=== PATIENT | male | born 1935 | race Caucasian/White ===

== ENCOUNTER 2016-07-07 09:20 | Emergency (ER) | payer OTHER ==
[~2016-07-07] VITALS: Ht 182.9 cm; Wt 83.9 kg
[~2016-07-07 09:20] MED LIST: ACETAMINOPHEN325 M1 PO; ALOE VERA PO; ASPIRIN EC325 M1 PO; ASPIRIN EC81 M1 PO; ASPIRIN325; ASPIRIN325 PO; ATENOLOL 25 MG25 M1 PO; ATENOLOL 25MG T25 MG PO; AVASTIN; CALCIUM 1,0001 EACH PO; CO Q-10100 MG PO; COLACE 100 MG100 MG PO; DILTIAZEM ER180 M1; EFFIENT10 MG PO; ENDOCET 5-3251 EACH PO; FISH OIL + VIT1 EACH PO; FISH OIL 1,001000 M1 PO; FISHOIL OR; FLECAINIDE ACET50 M1; FOLBIC RF TABL1 EACH PO; FOLGARD TABLET1 EAC1 PO; GALZIN25 MG PO; GLUCOSAMINE &1 EACH PO; GLUCOSAMINE HC500 MG PO; GLUTAMINE500 MG PO; IMDUR 60 MG TAB60 M1 PO; IRON325 PO; ISOSORBIDE DINI30 MG PO; LIPITOR10 MG PO; LIPITOR20 MG PO; LOW DOSE ASPIRI81 M1 PO; LUCENTIS0.3 MG/0.0 IO; LUCENTIS0.5 MG/0.0 INJ; LUTEIN20 M1 PO; LUTEIN20 MG PO; MOM PO; MULTIVITAMINS1 EAC7 PO; NIACOR500 MG PO; NORCO 5-325 TA1 EACH PO; ORENCIA125 MG/1 M SQ; PACERONE 200 M200 M1 PO; PEPCID AC20 M1 PO; PHISOHEX148 ML TP; PLAVIX 75 MG TA75 MG; PLAVIX 75 MG TA75 MG PO; PRADAXA150 MG PO; PREDNISONE 5 MG5 M1 PO; SENNA PO; TAMBOCOR 50 MG50 MG PO; TENORMIN25 MG PO; TUMS PO; UNICOMPLEX M TA1 TA1 PO; VEGETARIAN GLU750 MG PO; VITAMIN A25000 UNIT PO; VITAMIN D2000 UNIT PO; VITAMINC500 PO; ZEAXANTHIN100 GM PO; [UNRECOGNIZED DRUG - OTHER]
[2016-07-07] MEDS ORDERED: BIOTIN1 MG PO (09:48)
[2016-07-07] MEDS ORDERED: NIACIN 500 MG500 M1 PO (09:49)
[2016-07-07 10:13] LABS: HEMATOCRIT 31.5 % (42.0-52.0); MCH 31.5 pg (26.0-34.0); MCHC 34.8 % (28.0-37.0); MCV 90.5 fL (80.0-100.0); PLATELET COUNT 106 thou/uL (150-400); RBC 3.48 mil/uL (4.50-6.00)
[2016-07-07 10:18] LABS: CALCIUM 8.7 mg/dL (8.5-10.1); POTASSIUM 3.8 mmol/L (3.5-5.1)
[2016-07-07 10:19] LABS: MANUAL DIFF YES
[2016-07-07 10:22] LABS: WBC 1.5 thou/uL (4.0-11.0)
[2016-07-07] MEDS ORDERED: AMOXICILLIN 50500 M1 PO (10:45)
[2016-07-07] MEDS ORDERED: TAMIFLU75 MG PO (10:45)
[2016-07-07 11:06] LABS: ABSOLUTE NEUTROPHILS 0.2 thou/uL (1.4-8.2); TOTAL CELL COUNT 50
[2016-07-07 11:07] LABS: ANISOCYTOSIS 1+
== END 2016-07-07 10:56 | disposition home or self-care (01) ==
LOC: ER 09:20
PROVIDERS: Emergency Medicine
DX: J40 Bronchitis, not specified as acute or chronic (principal); B34.9 Viral infection, unspecified; I10 Essential (primary) hypertension; E78.00 Pure hypercholesterolemia, unspecified; K21.9 Gastro-esophageal reflux disease without esophagitis; Z95.1 Presence of aortocoronary bypass graft; Z98.890 Other specified postprocedural states; Z95.9 Presence of cardiac and vascular implant and graft, unspecified; Z87.891 Personal history of nicotine dependence

== ENCOUNTER → 2018-12-24 | Outpatient (CLI) | payer OTHER ==
[~2018-12-24] MED LIST changes: +AMOXICILLIN 50500 M1 PO; +BIOTIN1 MG PO; +NIACIN 500 MG500 M1 PO; +TAMIFLU75 MG PO
== END ==
LOC: RAD 11:08
DX: R05 Cough (principal); Z95.1 Presence of aortocoronary bypass graft; Z88.0 Allergy status to penicillin; Z88.8 Allergy status to other drugs, medicaments and biological substances

== ENCOUNTER → 2020-09-07 | Outpatient (CLI) | payer OTHER | LOC: SJCVC 16:13 | PROVIDERS: ATTEND Internal Medicine | DX: R94.31 Abnormal electrocardiogram [ECG] [EKG] (principal); R00.0 Tachycardia, unspecified; I45.10 Unspecified right bundle-branch block; I44.0 Atrioventricular block, first degree; I65.23 Occlusion and stenosis of bilateral carotid arteries; E78.5 Hyperlipidemia, unspecified; I51.7 Cardiomegaly; M05.79 Rheumatoid arthritis with rheumatoid factor of multiple sites without organ or systems involvement; G20 Parkinson's disease; K21.9 Gastro-esophageal reflux disease without esophagitis; E78.00 Pure hypercholesterolemia, unspecified; E03.9 Hypothyroidism, unspecified; G47.33 Obstructive sleep apnea (adult) (pediatric); M06.9 Rheumatoid arthritis, unspecified; I45.6 Pre-excitation syndrome; Z95.1 Presence of aortocoronary bypass graft; Z79.899 Other long term (current) drug therapy; Z86.12 Personal history of poliomyelitis; Z87.891 Personal history of nicotine dependence; Z88.5 Allergy status to narcotic agent; Z88.0 Allergy status to penicillin; Z88.8 Allergy status to other drugs, medicaments and biological substances ==

== ENCOUNTER → 2021-05-07 | Outpatient (CLI) | payer OTHER | LOC: SJCVC 14:42 | PROVIDERS: ATTEND Internal Medicine | DX: R94.31 Abnormal electrocardiogram [ECG] [EKG] (principal); I45.10 Unspecified right bundle-branch block; I44.0 Atrioventricular block, first degree; R00.0 Tachycardia, unspecified; I25.10 Atherosclerotic heart disease of native coronary artery without angina pectoris; I48.0 Paroxysmal atrial fibrillation; I10 Essential (primary) hypertension; I65.23 Occlusion and stenosis of bilateral carotid arteries; E78.5 Hyperlipidemia, unspecified; U07.1 COVID-19; J12.82 Pneumonia due to coronavirus disease 2019; M05.79 Rheumatoid arthritis with rheumatoid factor of multiple sites without organ or systems involvement; Z95.1 Presence of aortocoronary bypass graft; Z88.0 Allergy status to penicillin; Z88.8 Allergy status to other drugs, medicaments and biological substances; Z79.899 Other long term (current) drug therapy; Z87.891 Personal history of nicotine dependence ==

== ENCOUNTER → 2021-08-13 | Outpatient (CLI) | payer OTHER | LOC: SJCVC 15:25 | PROVIDERS: ATTEND Internal Medicine | DX: R94.31 Abnormal electrocardiogram [ECG] [EKG] (principal); I48.91 Unspecified atrial fibrillation; I25.10 Atherosclerotic heart disease of native coronary artery without angina pectoris; I48.21 Permanent atrial fibrillation; I10 Essential (primary) hypertension; I65.23 Occlusion and stenosis of bilateral carotid arteries; E78.5 Hyperlipidemia, unspecified; U07.1 COVID-19; J12.82 Pneumonia due to coronavirus disease 2019; M05.79 Rheumatoid arthritis with rheumatoid factor of multiple sites without organ or systems involvement; K21.9 Gastro-esophageal reflux disease without esophagitis; E78.00 Pure hypercholesterolemia, unspecified; G47.33 Obstructive sleep apnea (adult) (pediatric); D70.9 Neutropenia, unspecified; M06.9 Rheumatoid arthritis, unspecified; Z87.891 Personal history of nicotine dependence; Z79.899 Other long term (current) drug therapy; Z88.0 Allergy status to penicillin; Z88.8 Allergy status to other drugs, medicaments and biological substances ==